=== PATIENT | female | born 1950 | race Caucasian/White ===

== ENCOUNTER 2023-06-25 14:39 | Observation (INO) ==
[2023-06-25] MEDS: ZOFRAN 4 MG/2 ML IVP STA (14:40)
[2023-06-25 14:49] LABS: BASOPHILS % (AUTO) 0.4 % (0.0-3.0); EOSINOPHILS # (AUTO) 0.2 K/ul (0.0-0.7); EOSINOPHILS % (AUTO) 1.4 % (0.0-7.0); IMMATURE GRANULOCYTE % (AUTO) 0.4 % (0.0-5.0); LYMPHOCYTES # (AUTO) 2.1 K/uL (0.60-3.4); LYMPHOCYTES % (AUTO) 19.2 (10.0-50.0); MEAN CORPUSCULAR HEMOGLOBIN 30.2 pg (27.0-31.0); MEAN CORPUSCULAR HGB CONC 32.4 (31.8-35.4); MEAN CORPUSCULAR VOLUME 93.4 fl (81.0-99.0); MONOCYTES # (AUTO) 0.8 K/uL (0.4-2.0); MONOCYTES % (AUTO) 6.9 (0-10); NEUTROPHILS # (AUTO) 7.8 K/ul (2.0-6.9); NEUTROPHILS % (AUTO) 71.7 % (42.2-75.2); PLATELET COUNT 259 10^3/uL (140-440); RDW COEFFICIENT OF VARIATION 20.6 % (11.6-14.8); RED BLOOD COUNT 3.64 10^6/ul (4.20-5.40); WHITE BLOOD COUNT 10.84 K/ul (4.6-10.2)
[2023-06-25 15:03] LABS: ALANINE AMINOTRANSFERASE 16.3 U/L (0-35); ALBUMIN 4.11 g/dL (3.5-5.0); ALKALINE PHOSPHATASE 57.9 U/L (53-141); ASPARTATE AMINO TRANSFERASE 23.8 U/L (14-36); BILIRUBIN,TOTAL 0.43 mg/dL (0.2-1.3); BLOOD UREA NITROGEN 13.3 mg/dL (7-17); CALCIUM 9.23 mg/dL (8.4-10.2); CHLORIDE 103.2 mmol/L (98-107); CREATININE 0.91 mg/dL (0.60-1.30); GLUCOSE 139.1 mg/dL (74-106); POTASSIUM 3.76 mmol/L (3.5-5.1); SODIUM 135.1 mmol/L (134.5-145); TOTAL PROTEIN 6.72 g/dL (6.3-8.2)
[2023-06-25 15:05] LABS: ANISOCYTOSIS 3+ (NOT PRESENT)
[2023-06-25 15:11] LABS: PARTIAL THROMBOPLASTIN TIME 24.8 SEC (23.9-40.0); PROTHROMBIN TIME 10.3 SEC (9.3-11.0)
[2023-06-25 15:14] LABS: TROPONIN I 0.016 ng/ml (0.0000-0.120)
[2023-06-25 15:21] LABS: MOLECULAR FLU A NEGATIVE BY NAAT (NEGATIVE); MOLECULAR FLU B NEGATIVE BY NAAT (NEGATIVE); RSV MOLECULAR NEGATIVE BY NAAT (NEGATIVE); SARS COV-2 RNA RAPID NAAT NEGATIVE (NEGATIVE)
--- NOTE | 2023-06-25 15:22 | CT ---
EXAMINATION: HEAD CT WITHOUT CONTRAST HISTORY: Altered level of consciousness TECHNIQUE: Noncontrast CT of the brain was performed with images acquired from skull base to vertex. 2-D coronal and sagittal reformatted images were obtained from the axial source images. Contrast Dose: None. CT Dose Reduction Techniques Performed: Yes. COMPARISON: None. FINDINGS: Topogram demonstrates no significant abnormality. Intraparenchymal hemorrhage: None. Parenchyma: Normal camejo-white differentiation. No mass effect or midline shift. Age related cerebral atrophy. Mild periventricular white matter ischemic change consistent with small vessel disease. M ild bilateral internal carotid artery calcifications. Extra-axial spaces and basal cisterns: Normal. Ventricles: Normal size and morphology for age. Paranasal sinuses and mastoid air cells: Mucosal thickening in the right sphenoid sinus. Remaining s inuses visualized are clear. Mastoid air cells are clear. Orbits: Normal visualized portions. Sella/Skull Base: Normal. Other: Scalp and visualized soft tissues are normal. Calvarium is normal. Mild leftward deviation na laith septum per IMPRESSION: 1. Senescent changes without acute abnormality. 2. Mild right sphenoid sinus disease. All CT scans are performed using dose optimization techniques as appropriate to the performed exam an d include at least one of the following: Automated exposure control, adjustment of the mA and/or kV according t o size, and the use of iterative reconstruction technique.
[2023-06-25] MEDS: SODIUM CHLORIDE 500 ML IV STA (15:41)
--- NOTE | 2023-06-25 16:00 | ED.PDOC ---
General ED Provider: Dr. DENNYS VALERA MD Chief Complaint: Weakness Stated Complaint: Patient presents to ER from home accompanied by her complaining of worsening weakness. Patient's reports he noticed over the past few days she seemed more weak. However was doing pretty well yesterday evening and this morning until approximately 4 AM. Says she started having such significant weakness that she was unable to walk independently. No other complaints at this time. Time Seen by Provider: 06/25/23 14:42 Mode of Arrival: Wheelchair Information Source: Family () Exam Limitations: No limitations Primary Care Provider: EUSEBIA BARRETO MD Nursing and Triage Documentation Reviewed and Agree: Yes What is Opioid Naive?: *Opioid Naive implies the patient is not already taking opioids or not chronically receiving opioids on a daily basis. *PRN dosing is not "usually" associated with tolerance. *Patients are at higher risk of over-sedation and aspiration. What is Opioid Tolerant?: *Opioid Tolerance implies less than the expected response to an opioid. *Acquired tolerance is defined by the patient taking 60mg of oral morphine daily (or equianalgesic dose of another opioid) for 1 week or more. *Often associated with chronic pain. *May take more than usual dose to achieve desired pain control. Neurological Deficit Complaint/Exam Symptom Onset Unknown: Yes Symptom Onset Date: 06/25/23 Symptom Onset Time: 04:00 NIH Scale Score (see protocol): 10 IV t-PA Prescribed: No Reasons for not prescribing IV t-PA: Medical contraindication Review of Systems Review Of Systems Constitutional: Reports Weakness All Other Systems: Reviewed and Negative (Except for those listed in the HPI.) [facility] Medical History Weakness R53.1 - Weakness (ICD-10) COVID U07.1 - COVID-19 (ICD-10) Acute hypoxemic respiratory failure due to COVID-19 U07.1 - COVID-19 (ICD-10) J96.01 - Acute respiratory failure with hypoxia (ICD-10) Family History Other Cancer Coronary artery arteriosclerosis Social History Smoking and tobacco status: Current every day smoker Tobacco type: cigarettes Passive smoking exposure: No Second hand smoke exposure: No Smoking risk assessment performed: Yes Alcohol intake: never Substance use type: does not use Household members: none Marital status: W / Lives independently: Yes Number of children: 4 Current occupational status: retired Pets and animals: Yes Current gender identity: female Seatbelt use: always Drives intoxicated or rides with intoxicated diesel truck driver: No Water heater temperature set < 120 degrees: No Working smoke detector in home: Yes Fire extinguisher in home: Yes Carbon monoxide detector in home: Yes Firearms in home: No Surgical History Hx of tonsillectomy Z90.89 - Acquired absence of other organs (ICD-10) Hx of tubal ligation Z98.51 - Tubal ligation status (ICD-10) Hx of cholecystectomy Z90.49 - Acquired absence of other specified parts of digestive tract (ICD- 10) Hx of CABG 2003 Z95.1 - Presence of aortocoronary bypass graft (ICD-10) S/P skin cancer resection excision right submandibular node 05/2020 Pt. refused Reccomended Radical Neck Dissection Z98.890 - Other specified postprocedural states (ICD-10) Female Reproductive History Menstrual Hx Hysterectomy: No Hx Tubal Ligation: Yes Physical Exam Physical Exam Appearance: Reports Ill-appearing, No pain distress and Well-nourished Ill-appearing: Severe Pain Distress: None Eyes: Reports COLT and EOMI ENT: Reports Ears normal and Nose normal Neck: Supple Respiratory: Reports Airway patent, Breath sounds clear, Breath sounds equal and Respirations nonlabored Cardiovascular: Reports RRR, Pulses normal and No murmur GI/: Reports Soft and Nontender Musculoskeletal: Reports Limited ROM and Limited strength Skin: Reports Warm, Dry and Normal color Neurological: Reports Sensation intact, Reflexes intact, Cranial nerves intact, Alert and Oriented Psychiatric: Reports Affect appropriate and Mood appropriate Interpretation EKG Interpretation EKG Interpretation By: ED Physician Time of EKG #1: 14:37 Rate: Tachy Rhythm: Sinus Ectopy: None [place]: NL ST Segment: Normal Interpretation: Sinus tach, no STEMI EKG Interpretation By: ED Physician Time of EKG #2: 17:12 Rate: Normal Rhythm: Sinus Ectopy: PACs [place]: NL ST Segment: Normal EKG Interpretation: Sinus rhythm with PACs EKG Comparison: No significant changes Critical Care Note Critical Care Note Total Critical Care Time (mins): 60 Course Course 06/25/23 14:40 06/25/23 14:40 Orders, Labs, Meds: Lab Review 06/25/23 06/25/23 06/25/23 14:40 14:51 18:00 WBC 10.84 H RBC 3.64 L Hgb 11.0 L Hct 34.0 L MCV 93.4 MCH 30.2 MCHC 32.4 RDW Coeff of Jean [place] 20.6 H Plt Count 259 Immature Gran % (Auto) 0.4 Neut % (Auto) 71.7 Lymph % (Auto) 19.2 [place] % (Auto) 6.9 Eos % (Auto) 1.4 Baso % (Auto) 0.4 Neut # (Auto) 7.8 H Lymph # (Auto) 2.1 [place] # (Auto) 0.8 Eos # (Auto) 0.2 Baso # (Auto) 0.0 Immature Gran # (Auto) 0.0 Plt Morphology Comment Anisocytosis 3+ PT 10.3 INR 0.99 APTT 24.8 Sodium 135.1 Potassium 3.76 Chloride 103.2 Carbon Dioxide 21.0 L Anion Gap 14.66 BUN 13.3 Creatinine 0.91 Estimated GFR (MDRD) 61.00 BUN/Creatinine Ratio 14.61 Glucose 139.1 H Calcium 9.23 Total Bilirubin 0.43 AST 23.8 ALT 16.3 Alkaline Phosphatase 57.9 Troponin I 0.016 Total Protein 6.72 Albumin 4.11 Globulin 2.61 Albumin/Globulin Ratio 1.57 Urine Color Yellow Urine Clarity Clear Urine pH 5.5 Ur Specific [place] <=1.005 Urine Protein Negative Urine Glucose (UA) Negative Urine Ketones Negative Urine Blood Negative Urine Nitrite Negative Urine Bilirubin Negative Urine Urobilinogen 0.2 Ur Leukocyte Esterase Negative Influ A Molecular Assay Negative by naat Influ B Molecular Assay Negative by naat RSV Antigen Negative by naat SARS CoV-2 RNA Rapid VERONICA Negative Orders Category Date Time Status ADMIT OBSERVATION [PLACE PATIENT OBSERVATION] .TO ADMISSION 06/25/23 19:36 Active MEDSURG (MONITORED BED) EKG-(ED ONLY) Stat CARDIO 06/25/23 14:42 Completed EKG-(ED ONLY) Stat CARDIO 06/25/23 17:06 Completed NPO REMINDER: IMAGING ONCE CARE 06/25/23 14:42 Completed TELEMETRY MONITORING TELE CARE 06/25/23 19:36 Active ED ACCUCHECK ASSESSMENT .ONCE EMERGENCY 06/25/23 14:42 Active ED APPLY O2 .ONCE EMERGENCY 06/25/23 14:42 Active ED INSIDE SALES ACCOUNT MANAGER APPLIED .ONCE EMERGENCY 06/25/23 14:42 Active ED IV/MEDIPORT/POWERPORT .ONCE EMERGENCY 06/25/23 14:42 Active ED NEUROLOGICAL CHECKS Q4HR EMERGENCY 06/25/23 14:42 Active CBC W/ AUTO DIFF Stat LAB 06/25/23 14:40 Completed COMPREHENSIVE METABOLIC PANEL Stat LAB 06/25/23 14:40 Completed FLU A & B MOLECULAR [FLU A/B MOLECULAR] Stat LAB 06/25/23 14:51 Completed PARTIAL THROMBOPLASTIN TIME Stat LAB 06/25/23 14:40 Completed PT WITH INR Stat LAB 06/25/23 14:40 Completed RAPID STREP SCREEN [MOLECULAR GROUP A STREP] Stat LAB 06/25/23 18:47 Completed RBC MORPHOLOGY Stat LAB 06/25/23 14:40 Completed RSV Stat LAB 06/25/23 14:51 Completed SARS COV-2 RNA RAPID VERONICA Stat LAB 06/25/23 14:51 Completed TROPONIN I Stat LAB 06/25/23 14:40 Completed URINALYSIS C & S IF INDICATED Stat LAB 06/25/23 18:00 Completed 0.9 % Sodium Chloride [Saline Flush] Meds 06/25/23 14:42 Active 1 syr IVF PRN PRN Ondansetron HCl/Pf [Zofran 4 mg/2 ml] Meds 06/25/23 14:44 Discontinued 4 mg IVP ONCE STA Sodium Chloride 0.9% [Sodium Chloride] 500 ml Meds 06/25/23 14:46 Discontinued IV 100 mls/hr CT HEAD W/O CONTRAST Stat RADS 06/25/23 14:42 Completed CTA ANGIO HEAD Stat RADS 06/25/23 14:42 Completed CTA ANGIO NECK Stat RADS 06/25/23 14:42 Completed Medications Generic Name Dose Route Start Last Admin Trade Name Freq PRN Reason Stop Dose Admin Acetaminophen 650 mg 06/25/23 20:52 Acetaminophen 325 Mg Tablet PO Q4H PRN Mild Pain Alprazolam 0.25 mg 06/25/23 21:00 06/25/23 21:20 Alprazolam 0.25 Mg Tablet PO 0.25 mg BID JAMAL Administration Aspirin 81 mg 06/26/23 07:30 Aspirin 81 Mg Tablet. PO DAILYWM2 JAMAL Clopidogrel Bisulfate 75 mg 06/26/23 09:00 Clopidogrel Bisulfate 75 Mg Tablet PO DAILY JAMAL Ferrous Sulfate 324 mg 06/25/23 21:30 06/25/23 21:20 Ferrous Sulfate 324 Mg Tablet. PO 324 mg BID JAMAL Administration Hydralazine HCl 10 mg 06/25/23 21:03 Hydralazine Hcl 20 Mg/Ml Sdv IVP Q6H PRN Hypertension Levothyroxine Sodium 50 mcg 06/26/23 06:00 Levothyroxine Sodium 50 Mcg Tablet PO QDAC2 JAMAL Pravastatin Sodium 80 mg 06/26/23 09:00 Pravastatin Sodium 40 Mg Tablet PO DAILY JAMAL Ranolazine 500 mg 06/25/23 21:00 06/25/23 21:20 Ranolazine 500 Mg Tab.Er.12h PO 500 mg BID JAMAL Administration Sodium Chloride 1 syr 06/25/23 14:42 0.9% Sodium Chloride 10 Ml Disp.Syrin IVF PRN PRN To flush IV Discontinued Medications Generic Name Dose Route Start Last Admin Trade Name Freq PRN Reason Stop Dose Admin Aspirin 243 mg 06/25/23 20:55 06/25/23 21:20 Aspirin 81 Mg Tab.Chew PO 06/25/23 20:56 243 mg ONCE ONE Administration Sodium Chloride 500 mls @ 100 mls/hr 06/25/23 14:46 06/25/23 15:41 Sodium Chloride IV 06/25/23 19:45 100 mls/hr .Q5H STA Administration Ondansetron HCl 4 mg 06/25/23 14:44 06/25/23 14:40 Ondansetron Hcl/Pf 4 Mg/2 Ml Sdv IVP 06/25/23 14:45 4 mg ONCE STA Administration Vital Signs: Temp Pulse Resp BP Pulse Ox O2 Flow Rate 06/25/23 14:44 2 06/25/23 14:44 97.5 F L 130 H 16 128/79 94 L [place] [id number] Diagnostic Imaging CT Report : [id number] Signed Patient: AYDE FARIA Acct:[id number] Medical Record: [id number] : 1950 Loc: ED Room/Bed: Age/Sex: 72 / F ADM Status: REG ER Date of Service: 06/25/23 Ordering Physician: DENNYS VALERA MD Procedure(s): CT HEAD W/O CONTRAST Report Number(s): [id number] Accession Number(s): [id number] cc: EUSEBIA BARRETO MD; DENNYS VALERA MD EXAMINATION: HEAD CT WITHOUT CONTRAST HISTORY: Altered level of consciousness TECHNIQUE: Noncontrast CT of the brain was performed with images acquired from skull base to vertex. 2-D coronal and sagittal reformatted images were obtained from the axial source images. Contrast Dose: None. CT Dose Reduction Techniques Performed: Yes. COMPARISON: None. FINDINGS: Topogram demonstrates no significant abnormality. Intraparenchymal hemorrhage: None. Parenchyma: Normal veloz-white differentiation. No mass effect or midline shift. Age related cerebral atrophy. Mild periventricular white matter ischemic change consistent with small vessel disease. Mild bilateral internal carotid artery calcifications. Extra-axial spaces and basal cisterns: Normal. Ventricles: Normal size and morphology for age. Paranasal sinuses and mastoid air cells: Mucosal thickening in the right sphenoid sinus. Remaining sinuses visualized are clear. Mastoid air cells are clear. Orbits: Normal visualized portions. Sella/Skull Base: Normal. Other: Scalp and visualized soft tissues are normal. Calvarium is normal. Mild leftward deviation nasal septum per IMPRESSION: 1. Senescent changes without acute abnormality. 2. Mild right sphenoid sinus disease. All CT scans are performed using dose optimization techniques as appropriate to the performed exam and include at least one of the following: Automated exposure control, adjustment of the mA and/or kV according to size, and the use of iterative reconstruction technique. Dictated By: HUSSAIN CARPENTER MD Signed By: HUSSAIN CARPENTER MD Dictated Date/Time: 06/25/23 1509 Transcribed Date/Time: 06/25/23 1509 Signed Date/Time: 06/25/23 [address] [place] [address] Report : [id number] Signed Patient: AYDE FARIA Acct:[id number] Medical Record: [id number] : 1950 Loc: ED Room/Bed: Age/Sex: 72 / F ADM Status: REG ER Date of Service: 06/25/23 Ordering Physician: DENNYS VALERA MD Procedure(s): CTA ANGIO HEAD Report Number(s): [id number] Accession Number(s): [id number] cc: EUSEBIA BARRETO MD; DENNYS VALERA MD EXAMINATION: COMPUTED TOMOGRAPHY ANGIOGRAPHY (CTA) OF THE HEAD WITHOUT AND WITH CONTRAST HISTORY: Altered level of consciousness. TECHNIQUE: Computed tomography of the head was performed without contrast according to standard protocol. Computed tomography angiography was obtained from the skull base to the vertex following administration of intravenous contrast. IV Contrast: 100 mL of Visipaque 320 administered. 3D/MIP/VR images utilized. CT Dose Reduction Techniques Employed: Yes COMPARISON: CT of the head done earlier in the day. FINDINGS: PARENCHYMAL FINDINGS: No intracranial bleed, midline shift, mass effect, extra-axial fluid collection or hydrocephalous. Age related cerebral atrophy. Mild periventricular white matter ischemic change consistent small vessel disease. Veloz/white matter differentiation appears normal. No enhancing lesions or areas of abnormal enhancement. Bony structures normal for age. Mild right sphenoid sinus disease. The remaining sinuses and mastoids visualized are clear. ANGIOGRAPHIC FINDINGS: Limited Neck: Patent extracranial vasculature. [place]: Complete. Mild atherosclerotic calcific changes in the carotid siphon regions bilaterally without significant stenosis. Anterior Circulation: - Internal Carotid Arteries: No significant stenosis. - Middle Cerebral Arteries: No significant stenosis. - Anterior Cerebral Arteries: No significant stenosis. Posterior (Vertebrobasilar) Circulation: - Vertebral Arteries: Co-dominant. No significant stenosis. - Basilar Artery: No significant stenosis. - Posterior Cerebral Arteries: No significant stenosis. Other: No aneurysm. No vascular malformation. Intracranial venous system is within normal limits. IMPRESSION: 1. Noncontrast CT of the head shows no acute abnormality. Contrast enhanced parenchyma is unremarkable 2. Unremarkable CTA of the head. 3. Mild right sphenoid sinus disease. All CT scans are performed using dose optimization techniques as appropriate to the performed exam and include at least one of the following: Automated exposure control, adjustment of the mA and/or kV according to size, and the use of iterative reconstruction technique. Dictated By: HUSSAIN CARPENTER MD Signed By: HUSSAIN CARPENTER MD Dictated Date/Time: 06/25/23 1546 Transcribed Date/Time: 06/25/23 1546 Signed Date/Time: 06/25/[address] Report : [id number] Signed Patient: AYDE FARIA Acct:[id number] Medical Record: [id number] : 1950 Loc: ED Room/Bed: Age/Sex: 72 / F ADM Status: REG ER Date of Service: 06/25/23 Ordering Physician: DENNYS VALERA MD Procedure(s): CTA ANGIO NECK Report Number(s): [id number] Accession Number(s): [id number] cc: EUSEBIA BARRETO MD; DENNYS VALERA MD EXAM: NECK CTA WITHOUT AND WITH CONTRAST HISTORY: Stroke TECHNIQUE: CTA of the neck prior to and following IV contrast administration. CT dose reduction techniques performed: Yes. Coronal and sagittal reconstructions were performed. MIP/VR/3-D images were provided. All reported proximal ICA stenoses are calculated based upon the distal ICA diameter (NASCET criteria). COMPARISON: CT head 06/25/2023 FINDINGS: Aortic arch, brachiocephalic artery, and common carotid arteries are patent. Internal carotid arteries are patent. Vertebral arteries are patent. No aneurysm, dissection, or high grade stenosis/occlusion. . IMPRESSION: No aneurysm, dissection, or high-grade stenosis/occlusion. All CT scans are performed using dose optimization techniques as appropriate to the performed exam and include at least one of the following: Automated exposure control, adjustment of the mA and/or kV according to size, and the use of iterative reconstruction technique. Dictated By: CLAYTON JAEGER DO Signed By: CLAYTON JAEGER DO Dictated Date/Time: 06/25/23 1556 Transcribed Date/Time: 06/25/23 155 Signed Date/Time: 06/25/23 1606 NIH Stroke Scale 1a. Level of Consciousness: 0=Alert and keenly responsive 1b. Level of Consciousness Questions: 0=Answers correctly to two questions 1c. Level of Consciousness Commands: 0=Performs two tasks correctly 2. Best Gaze: 0=Normal 3. Visual: 0=No visual loss 4. Facial Palsy: 0=Normal 5a. Motor Left Arm: 3=No effort against gravity, falls to bed 5b. Motor Right Arm: 3=No effort against gravity, falls to bed 6a. Motor Left Le=No effort against gravity, falls to bed 6b. Motor Right Le=Drifts before 10 seconds arm, 5 seconds leg 7. Limb Ataxia: 0=Absent 8. Sensory: 0=Normal 9. Best Language: 0=No aphasia 10. Dysarthria: 0=Normal 11. Extincion and Inattention: 0=Normal Stroke Scale Total: 10 Stroke Checklist for Activase Younger than 18 years of age: No Minor signs of stroke: Yes Stroke signs are rapidly improving: No Coma or stupor: No Seizure at the onset of stroke: No Clinic presentation suggestive of subarachnoid hemorrhage: No Intracranial hemorrhage on CT scan: No Puncture of a non-compressible artery or biopsy of any internal organ within the past 7 days: No Pericarditis, endocarditis, septic emboli, recent , or active inflammatory bowel disease: No Lactating or woman: No Stroke or severe head trauma within the previous 3 months: No Major surgery or serious trauma (besides head trauma) in the previous 14 days: N o Gastroenterology or urinary tract hemorrhage in the previous 21 days: No Lumbar puncture in the previous 7 days: No Any history of intracranial hemorrhage: No Patients with a serious medical illness: No Active drug or alcohol abuse: No Acute myocardial infarction or post-myocardial infarction pericarditis: No Evidence of tumor, major infarct, or early signs of cerebral edema on CT scan: N o Platelet count lower than 100,000: No PT higher than 15 sec or INR higher than 1.7: No Systolic BP greater than 185 and/or diastolic BP greater than 110 mm Hg at the time of treatment: No Glucose lower than 50 mg/dl or greater than 400 mg/dl: No Stroke Core Antithrombotic Contraindication reason for not ordering Anitithrombotic: Not Indicated (LKW=04:00 today) Discharge Plan Discharge Patient Disposition: ADMITTED INPATIENT Discharge Problem: Weakness, Stroke-like symptoms Did you review [place] DEALER ACCOUNT MANAGER for ALL controlled substances?: Not Applicable ED Provider: DENNYS VALERA Condition: Good Physician Progress Note: 17:31 - Reassessed patient's motor weakness. Patient exhibits no drift of both upper and lower extremities. Symptoms appear to have resolved at this time. 18:22 - Spoke with on-call hospitalist (KHARI Alegria) regarding patient's status and current workup and management for weakness likely secondary to stroke-like symptoms. High clinical suspicion patient may have had a TIA. Her weakness has resolved at this time. Patient denies having any pacemaker or loop recorder or any other device that may be incompatible with an MRI. Hospitalist agreeable to accepting patient for observation admission for further workup.
--- NOTE | 2023-06-25 16:06 | CT ---
EXAM: NECK CTA WITHOUT AND WITH CONTRAST HISTORY: Stroke TECHNIQUE: CTA of the neck prior to and following IV contrast administration. CT dose reduction tech niques performed: Yes. Coronal and sagittal reconstructions were performed. MIP/VR/3-D images were provided. All reported proximal ICA stenoses are calculated based upon the distal ICA diameter (NASC ET criteria). COMPARISON: CT head 06/25/2023 FINDINGS: Aortic arch, brachiocephalic artery, and common carotid arteries are patent. Internal carotid arteri es are patent. Vertebral arteries are patent. No aneurysm, dissection, or high grade stenosis/occlusi on. . IMPRESSION: No aneurysm, dissection, or high-grade stenosis/occlusion. All CT scans are performed using dose optimization techniques as appropriate to the performed exam an d include at least one of the following: Automated exposure control, adjustment of the mA and/or kV according t o size, and the use of iterative reconstruction technique.
--- NOTE | 2023-06-25 16:08 | CT ---
EXAMINATION: COMPUTED TOMOGRAPHY ANGIOGRAPHY (CTA) OF THE HEAD WITHOUT AND WITH CONTRAST HISTORY: Altered level of consciousness. TECHNIQUE: Computed tomography of the head was performed without contrast according to standard gabino col. Computed tomography angiography was obtained from the skull base to the vertex following admini stration of intravenous contrast. IV Contrast: 100 mL of Visipaque 320 administered. 3D/MIP/VR images utilized. CT Dose Reduction Techniques Employed: Yes COMPARISON: CT of the head done earlier in the day. FINDINGS: PARENCHYMAL FINDINGS: No intracranial bleed, midline shift, mass effect, extra-axial fluid collection or hydrocephalous. A ge related cerebral atrophy. Mild periventricular white matter ischemic change consistent small vess el disease. Veloz/white matter differentiation appears normal. No enhancing lesions or areas of abno rmal enhancement. Bony structures normal for age. Mild right sphenoid sinus disease. The remaining sinuses and mastoids visualized are clear. ANGIOGRAPHIC FINDINGS: Limited Neck: Patent extracranial vasculature. [place]: Complete. Mild atherosclerotic calcific changes in the carotid siphon regions bila terally without significant stenosis. Anterior Circulation: - Internal Carotid Arteries: No significant stenosis. - Middle Cerebral Arteries: No significant stenosis. - Anterior Cerebral Arteries: No significant stenosis. Posterior (Vertebrobasilar) Circulation: - Vertebral Arteries: Co-dominant. No significant stenosis. - Basilar Artery: No significant stenosis. - Posterior Cerebral Arteries: No significant stenosis. Other: No aneurysm. No vascular malformation. Intracranial venous system is within normal limits. IMPRESSION: 1. Noncontrast CT of the head shows no acute abnormality. Contrast enhanced parenchyma is unremarkab le 2. Unremarkable CTA of the head. 3. Mild right sphenoid sinus disease. All CT scans are performed using dose optimization techniques as appropriate to the performed exam an d include at least one of the following: Automated exposure control, adjustment of the mA and/or kV according t o size, and the use of iterative reconstruction technique.
[2023-06-25 18:05] LABS: BILIRUBIN,URINE Negative (NEGATIVE); CLARITY,URINE Clear (CLEAR); COLOR,URINE Yellow (YELLOW); GLUCOSE, URINE (UA) Negative (NEGATIVE); KETONES,URINE Negative (NEGATIVE); LEUKOCYTE ESTERASE ,URINE Negative (NEGATIVE); NITRITE,URINE Negative (NEGATIVE); PH,URINE 5.5 (5-9); PROTEIN,URINE Negative (NEGATIVE); URINE, BLOOD Negative (NEGATIVE); UROBILINOGEN,URINE 0.2 (0.2)
[2023-06-25 20:42] VITALS: BMI 25.0
[2023-06-25] MEDS ORDERED: TYLENOL PO PRN (20:52)
[2023-06-25] MEDS ORDERED: NON-FORMULARY MEDICATION (Ferrous Sulfate 325 mg (65 mg iron) tablet) PO SCH (21:00)
[2023-06-25] MEDS ORDERED: HYDRALAZINE HCL IVP PRN (21:03)
[2023-06-25] MEDS: ASPIRIN CHEWABLE PO ONE (21:20)
[2023-06-25] MEDS: FERROUS SULFATE PO SCH (21:20)
[2023-06-25] MEDS: RANEXA PO SCH (21:20)
[2023-06-25] MEDS: XANAX PO SCH (21:20)
[2023-06-26] MEDS: SYNTHROID PO SCH (05:19)
[2023-06-26 06:02] LABS: BASOPHILS % (AUTO) 0.3 % (0.0-3.0); EOSINOPHILS # (AUTO) 0.2 K/ul (0.0-0.7); EOSINOPHILS % (AUTO) 3.2 % (0.0-7.0); HEMATOCRIT 31.4 % (37.0-47.0); HEMOGLOBIN 9.9 g/dl (12.0-16.0); IMMATURE GRANULOCYTE % (AUTO) 0.3 % (0.0-5.0); LYMPHOCYTES # (AUTO) 1.3 K/uL (0.60-3.4); LYMPHOCYTES % (AUTO) 20.7 (10.0-50.0); MEAN CORPUSCULAR HEMOGLOBIN 30.6 pg (27.0-31.0); MEAN CORPUSCULAR HGB CONC 31.5 (31.8-35.4); MEAN CORPUSCULAR VOLUME 96.9 fl (81.0-99.0); MONOCYTES # (AUTO) 0.5 K/uL (0.4-2.0); MONOCYTES % (AUTO) 7.5 (0-10); NEUTROPHILS # (AUTO) 4.3 K/ul (2.0-6.9); PLATELET COUNT 228 10^3/uL (140-440); RDW COEFFICIENT OF VARIATION 20.7 % (11.6-14.8); RED BLOOD COUNT 3.24 10^6/ul (4.20-5.40); WHITE BLOOD COUNT 6.29 K/ul (4.6-10.2)
[2023-06-26 06:18] LABS: ALANINE AMINOTRANSFERASE 13.3 U/L (0-35); ALBUMIN 3.64 g/dL (3.5-5.0); ALKALINE PHOSPHATASE 51.7 U/L (53-141); ASPARTATE AMINO TRANSFERASE 17.7 U/L (14-36); BILIRUBIN,TOTAL 0.38 mg/dL (0.2-1.3); BLOOD UREA NITROGEN 15.3 mg/dL (7-17); CALCIUM 8.57 mg/dL (8.4-10.2); CARBON DIOXIDE 21.4 mmol/L (22-30.0); CHLORIDE 106.7 mmol/L (98-107); CHOLESTEROL 131.6 mg/dL (0-200); CREATININE 0.91 mg/dL (0.60-1.30); GLUCOSE 117.3 mg/dL (74-106); HDL CHOLESTEROL 38.8 mg/dL (35-80); POTASSIUM 3.94 mmol/L (3.5-5.1); TOTAL PROTEIN 6.02 g/dL (6.3-8.2); TRIGLYCERIDES 85.6 mg/dL (0-150)
[2023-06-26] MEDS: PLAVIX PO SCH (08:52)
[2023-06-26] MEDS: ASPIRIN EC PO SCH (08:52)
[2023-06-26] MEDS: PRAVACHOL PO SCH (08:52)
[2023-06-26 10:29] VITALS: BP 104/51; TEMP 99.2
--- NOTE | 2023-06-26 11:48 | ECHO2D ---
Date of Exam: 06/26/2023 Ordering Physician: DR. BARRETO (PRIMARY CARE); BUCK CONTRERAS APRN (HOSPITALIST) Room #: 115 Reason for Echo: CEREBRAL VASCULAR ACCIDENT SYMPTOMS, HISTORY OF CORONARY ARTERY BYPASS GRAFTS, CHRONIC OBSTRUCTIVE PULMONARY DISEASE, HYPERLIPIDEMIA, DIABETES MELLITUS, HYPERTENSION, CORONARY ARTERY DISEASE, CURRENT SMOKER M-Mode Normal Adult Results LV Dimensions Normal Adult Results AoV Opening excursions >1.6 >1.6 LVEDD-base- 3.5-5.8 4.6 Ao root dimensions 2.0-3.7 3.7 LVESD-base- 3.1-4.6 L. Atrium dimensions 1.9-3.8 4.0 Post. Wall thickness 0.8-1.1 1.1 IV septum (thickness) 0.7-1.2 1.2 Post. Wall excursion 0.72-1.3 NORMAL Septal motion NORMAL Systolic motion R. Ventricular cavity 1.5-2.0 3.5 LVEF 60% 58% Paradoxical septal wall motion NORMAL 2-D : 2-D M Mode Echocardiogram was performed using apical four chamber and left parasternal long and short axis views. Also subcostal approach used - COPD. ENLARGED LEFT ATRIUM AND RIGHT VENTRICLE CAVITIES. NORMAL LEFT VENTRICLE SIZE AND LEFT VENTRICULAR CONTRACTILITY. NO EFFUSION. NO THROMBUS. VALVES ARE NORMAL. COLOR FLOW: MODERATE TO SEVERE TRICUSPID REGURGITATION ALSO SUBCOSTAL APPROACH - COPD M-MODE: MV: NORMAL AV: NORMAL TV: NORMAL PV: NORMAL CHAMBER SIZE: ENLARGED RIGHT VENTRICLE AND LEFT ATRIUM CAVITIES. WALL MOTION: NORMAL PERICARDIUM: NORMAL INTERPRETATION: 1. BORDERLINE LEFT VENTRICLE HYPERTROPHY WITH ENLARGED LEFT ATRIAL CAVITY. 2. ENLARGED RIGHT VENTRICLE CAVITY. 3. NORMAL VALVES BY 2 'D' AND 'M' MODE ECHOCARDIOGRAM. 4. COLOR FLOW = MODERATE TO SEVERE TRICUSPID REGURGITATION. MTDD
--- NOTE | 2023-06-26 14:18 | PCM.SS ---
Provider Provider: BUCK CONTRERAS PA-C, [facility] Admission Date Admission Date: 06/25/23 Discharge Date Discharge Date: 06/26/23 Primary Care Physician Primary Care Physician: EUSEBIA CONTRERAS MD Chief Complaint Reason For Visit: WEAKNESS, STROKE LIKE SYMPTOMS History of Present Illness History of Present Illness: Admitted 06/25/23 19:41, this 72 year old /WHITE/F with pmhx of COPD, melanoma, hyperlipidemia, CAD s/p stent and CABG, PAD, hypertension, who presented to ER with left sided weakness that started about 1200 on 06/24. Patient states she was trying to get her outside for a phone call when she couldn't hardly walk to the building she was so weak. She thought her sugar was low. Her helped her into the home and she ate a peanut butter sandwich and felt better for a brief period of time but then she started having severe left sided weakness. No slurring of speech. No facial droop. In the ER she was found to have NIH of 10. CT head w/o and CTA head and neck were negative for acute findings. When ERP reevaluated patient her symptoms had competely resolved, she was back to her baseline. No hx of CVA or TIA in the past. Patient is on ASA and plavix for hx of CAD w/ stents/CABG. Pt is a chronic smoker. Patient did well through the night. No more events. Has remained at her baseline. She has been mildly hypoxic in upper 80s. Patient has been noncompliant with wearing a nasal cannula. [facility] Medical History Weakness R53.1 - Weakness (ICD-10) COVID U07.1 - COVID-19 (ICD-10) Acute hypoxemic respiratory failure due to COVID-19 U07.1 - COVID-19 (ICD-10) J96.01 - Acute respiratory failure with hypoxia (ICD-10) Surgical History Hx of tonsillectomy Z90.89 - Acquired absence of other organs (ICD-10) Hx of tubal ligation Z98.51 - Tubal ligation status (ICD-10) Hx of cholecystectomy Z90.49 - Acquired absence of other specified parts of digestive tract (ICD- 10) Hx of CABG 2003 Z95.1 - Presence of aortocoronary bypass graft (ICD-10) S/P skin cancer resection excision right submandibular node 05/2020 Pt. refused Reccomended Radical Neck Dissection Z98.890 - Other specified postprocedural states (ICD-10) Family History Other Cancer Coronary artery arteriosclerosis Social History Smoking and tobacco status: Current every day smoker Tobacco type: cigarettes Passive smoking exposure: No Second hand smoke exposure: No Smoking risk assessment performed: Yes Alcohol intake: never Substance use type: does not use Household members: none Marital status: W / Lives independently: Yes Number of children: 4 Current occupational status: retired Pets and animals: Yes Current gender identity: female Seatbelt use: always Drives intoxicated or rides with intoxicated van driver: No Water heater temperature set < 120 degrees: No Working smoke detector in home: Yes Fire extinguisher in home: Yes Carbon monoxide detector in home: Yes Firearms in home: No Medications Mecications: Medications at Discharge (Home Meds & RX) aspirin 81 mg tablet,delayed release (Adult Low Dose Aspirin) 81 mg PO QDAY 04/24/22 cholecalciferol (vitamin D3) 25 mcg (1,000 unit) capsule 25 mcg PO QDAY 04/24/22 cyanocobalamin (vitamin B-12) 100 mcg tablet (Vitamin B-12) 100 mcg PO QDAY 04/24/22 omega 6-xfl-ioa-fish oil 300 mg-1,000 mg capsule (Fish Oil) 1 cap PO QDAY 04/24/22 ranolazine 500 mg tablet,extended release,12 hr 500 mg PO BID #180 tabs 02/10/23 atenolol 25 mg tablet 25 mg PO BID #180 tabs 03/03/23 clopidogrel 75 mg tablet 75 mg PO DAILY #90 tabs 03/24/23 alprazolam 0.25 mg tablet (Xanax) 0.25 mg PO BID #60 tabs 04/21/23 isosorbide mononitrate 30 mg tablet,extended release 24 hr 30 mg PO DAILY #90 tabs 05/11/23 levothyroxine 50 mcg tablet (Euthyrox) 50 mcg PO DAILY #90 tabs 05/11/23 lisinopril 40 mg tablet See Rx Instructions .Route .COMPLEX #90 tabs 05/21/23 ferrous sulfate 325 mg (65 mg iron) tablet 325 mg PO BID #60 tabs 06/04/23 pravastatin 80 mg tablet 80 mg PO DAILY #90 tabs 06/08/23 amlodipine 5 mg tablet See Rx Instructions .Route .COMPLEX #90 tabs 06/23/23 Allergies Allergies Allergy/AdvReac Type Severity Reaction Status Date / Time atorvastatin [From Lipitor] AdvReac Mild muscle Verified 06/25/23 15:03 aches escitalopram [From Lexapro] AdvReac Mild Unknown Verified 06/25/23 15:03 rosuvastatin [From Crestor] AdvReac Mild leg pain Verified 06/25/23 15:03 tylox AdvReac Mild Unknown Uncoded 06/25/23 15:03 Review of Systems Constitutional: Reports Weakness; Denies Fever Head: Reports Normocephalic and Atraumatic Cardiovascular: Denies Chest pain, Chest Pressure or Edema Respiratory: Reports Cough and Shortness of air Genitourinary: Denies Dysuria or Frequency Dermatologic: Denies Rashes Neurological: Reports Weakness and Problems with walking; Denies Headache Physical Examination Appearance: Positive No Apparent Distress and Alert and Oriented x3 Head: Positive Normocephalic and Atraumatic Neck: Positive Supple and Non-Tender Heart: Positive RRR Respiratory: Positive Breath Sounds Clear, Bilaterally, Breath Sounds Diminished and Other (+Pt has some mild conversational dyspnea. ) GI/: Positive Soft, Nontender, Bowel sounds normal and No Distention Extremities: Negative Edema Neurological: Positive Cranial nerves intact, Sensation Intact, Motor Intact, Alert and Oriented Psychiatric: Positive Normal Judgement, Normal Insight, Affect Appropriate and Mood Appropriate Vital Signs (Last 4 Hours) Vital Signs Last 4 Hours: Vital Signs: Last 4 Hours 06/26/23 12:00 Oxygen Delivery Method Room Air Labs This Visit Labs This Visit: Labs This Visit 06/25/23 06/25/23 06/25/23 14:40 14:51 18:00 WBC 10.84 H RBC 3.64 L Hgb 11.0 L Hct 34.0 L MCV 93.4 MCH 30.2 MCHC 32.4 RDW Coeff of [place] 20.6 H Plt Count 259 Immature Gran % (Auto) 0.4 Neut % (Auto) 71.7 Lymph % (Auto) 19.2 [place] % (Auto) 6.9 Eos % (Auto) 1.4 Baso % (Auto) 0.4 Neut # (Auto) 7.8 H Lymph # (Auto) 2.1 [place] # (Auto) 0.8 Eos # (Auto) 0.2 Baso # (Auto) 0.0 Immature Gran # (Auto) 0.0 Plt Morphology Comment Anisocytosis 3+ PT 10.3 INR 0.99 APTT 24.8 Sodium 135.1 Potassium 3.76 Chloride 103.2 Carbon Dioxide 21.0 L Anion Gap 14.66 BUN 13.3 Creatinine 0.91 Estimated GFR (MDRD) 61.00 BUN/Creatinine Ratio 14.61 Glucose 139.1 H Hemoglobin A1c Calcium 9.23 Total Bilirubin 0.43 AST 23.8 ALT 16.3 Alkaline Phosphatase 57.9 Troponin I 0.016 Total Protein 6.72 Albumin 4.11 Globulin 2.61 Albumin/Globulin Ratio 1.57 Triglycerides Cholesterol LDL Cholesterol, Calc VLDL Cholesterol HDL Cholesterol Cholesterol/HDL Ratio Urine Color Yellow Urine Clarity Clear Urine pH 5.5 Ur Specific [place] <=1.005 Urine Protein Negative Urine Glucose (UA) Negative Urine Ketones Negative Urine Blood Negative Urine Nitrite Negative Urine Bilirubin Negative Urine Urobilinogen 0.2 Ur Leukocyte Esterase Negative Influ A Molecular Assay Negative by naat Influ B Molecular Assay Negative by naat RSV Antigen Negative by naat SARS CoV-2 RNA Rapid VERONICA Negative 06/26/23 05:40 WBC 6.29 RBC 3.24 L Hgb 9.9 L Hct 31.4 L MCV 96.9 MCH 30.6 MCHC 31.5 L RDW Coeff of [place] 20.7 H Plt Count 228 Immature Gran % (Auto) 0.3 Neut % (Auto) 68.0 Lymph % (Auto) 20.7 [place] % (Auto) 7.5 Eos % (Auto) 3.2 Baso % (Auto) 0.3 Neut # (Auto) 4.3 Lymph # (Auto) 1.3 [place] # (Auto) 0.5 Eos # (Auto) 0.2 Baso # (Auto) 0.0 Immature Gran # (Auto) 0.0 Plt Morphology Comment Anisocytosis PT INR APTT Sodium 137.0 Potassium 3.94 Chloride 106.7 Carbon Dioxide 21.4 L Anion Gap 12.84 BUN 15.3 Creatinine 0.91 Estimated GFR (MDRD) 61.00 BUN/Creatinine Ratio 16.81 Glucose 117.3 H Hemoglobin A1c 5.17 Calcium 8.57 Total Bilirubin 0.38 AST 17.7 ALT 13.3 Alkaline Phosphatase 51.7 L Troponin I Total Protein 6.02 L Albumin 3.64 Globulin 2.38 Albumin/Globulin Ratio 1.52 Triglycerides 85.6 Cholesterol 131.6 LDL Cholesterol, Calc 76 VLDL Cholesterol 17 HDL Cholesterol 38.8 Cholesterol/HDL Ratio 3.4 L Urine Color Urine Clarity Urine pH Ur Specific [place] Urine Protein Urine Glucose (UA) Urine Ketones Urine Blood Urine Nitrite Urine Bilirubin Urine Urobilinogen Ur Leukocyte Esterase Influ A Molecular Assay Influ B Molecular Assay RSV Antigen SARS CoV-2 RNA Rapid VERONICA Microbiology This Visit 06/25/23 18:47 Throat Group A Strep Molecular Assay - Final Imaging Imaging: EXAMINATION: HEAD CT WITHOUT CONTRAST HISTORY: Altered level of consciousness TECHNIQUE: Noncontrast CT of the brain was performed with images acquired from skull base to vertex. 2-D coronal and sagittal reformatted images were obtained from the axial source images. Contrast Dose: None. CT Dose Reduction Techniques Performed: Yes. COMPARISON: None. FINDINGS: Topogram demonstrates no significant abnormality. Intraparenchymal hemorrhage: None. Parenchyma: Normal veloz-white differentiation. No mass effect or midline shift. Age related cerebral atrophy. Mild periventricular white matter ischemic change consistent with small vessel disease. Mild bilateral internal carotid artery calcifications. Extra-axial spaces and basal cisterns: Normal. Ventricles: Normal size and morphology for age. Paranasal sinuses and mastoid air cells: Mucosal thickening in the right sphenoid sinus. Remaining sinuses visualized are clear. Mastoid air cells are clear. Orbits: Normal visualized portions. Sella/Skull Base: Normal. Other: Scalp and visualized soft tissues are normal. Calvarium is normal. Mild leftward deviation nasal septum per IMPRESSION: 1. Senescent changes without acute abnormality. 2. Mild right sphenoid sinus disease. EXAMINATION: COMPUTED TOMOGRAPHY ANGIOGRAPHY (CTA) OF THE HEAD WITHOUT AND WITH CONTRAST HISTORY: Altered level of consciousness. TECHNIQUE: Computed tomography of the head was performed without contrast according to standard protocol. Computed tomography angiography was obtained from the skull base to the vertex following administration of intravenous contrast. IV Contrast: 100 mL of Visipaque 320 administered. 3D/MIP/VR images utilized. CT Dose Reduction Techniques Employed: Yes COMPARISON: CT of the head done earlier in the day. FINDINGS: PARENCHYMAL FINDINGS: No intracranial bleed, midline shift, mass effect, extra-axial fluid collection or hydrocephalous. Age related cerebral atrophy. Mild periventricular white matter ischemic change consistent small vessel disease. Veloz/white matter differentiation appears normal. No enhancing lesions or areas of abnormal enhancement. Bony structures normal for age. Mild right sphenoid sinus disease. The remaining sinuses and mastoids visualized are clear. ANGIOGRAPHIC FINDINGS: Limited Neck: Patent extracranial vasculature. [place]: Complete. Mild atherosclerotic calcific changes in the carotid siphon regions bilaterally without significant stenosis. Anterior Circulation: - Internal Carotid Arteries: No significant stenosis. - Middle Cerebral Arteries: No significant stenosis. - Anterior Cerebral Arteries: No significant stenosis. Posterior (Vertebrobasilar) Circulation: - Vertebral Arteries: Co-dominant. No significant stenosis. - Basilar Artery: No significant stenosis. - Posterior Cerebral Arteries: No significant stenosis. Other: No aneurysm. No vascular malformation. Intracranial venous system is within normal limits. IMPRESSION: 1. Noncontrast CT of the head shows no acute abnormality. Contrast enhanced parenchyma is unremarkable 2. Unremarkable CTA of the head. 3. Mild right sphenoid sinus disease. EXAM: NECK CTA WITHOUT AND WITH CONTRAST HISTORY: Stroke TECHNIQUE: CTA of the neck prior to and following IV contrast administration. CT dose reduction techniques performed: Yes. Coronal and sagittal reconstructions were performed. MIP/VR/3-D images were provided. All reported proximal ICA stenoses are calculated based upon the distal ICA diameter (NASCET criteria). COMPARISON: CT head 06/25/2023 FINDINGS: Aortic arch, brachiocephalic artery, and common carotid arteries are patent. Internal carotid arteries are patent. Vertebral arteries are patent. No aneurysm, dissection, or high grade stenosis/occlusion. . IMPRESSION: No aneurysm, dissection, or high-grade stenosis/occlusion. Reason for Echo: CEREBRAL VASCULAR ACCIDENT SYMPTOMS, HISTORY OF CORONARY ARTERY BYPASS GRAFTS, CHRONIC OBSTRUCTIVE PULMONARY DISEASE, HYPERLIPIDEMIA, DIABETES MELLITUS, HYPERTENSION, CORONARY ARTERY DISEASE, CURRENT SMOKER M-Mode Normal Adult Results LV Dimensions Normal Adult Results AoV Opening excursions >1.6 >1.6 LVEDD-base- 3.5-5.8 4.6 Ao root dimensions 2.0-3.7 3.7 LVESD-base- 3.1-4.6 L. Atrium dimensions 1.9-3.8 4.0 Post. Wall thickness 0.8-1.1 1.1 IV septum (thickness) 0.7-1.2 1.2 Post. Wall excursion 0.72-1.3 NORMAL Septal motion NORMAL Systolic motion R. Ventricular cavity 1.5-2.0 3.5 LVEF 60% 58% Paradoxical septal wall motion NORMAL 2-D : 2-D M Mode Echocardiogram was performed using apical four chamber and left parasternal long and short axis views. Also subcostal approach used - COPD. ENLARGED LEFT ATRIUM AND RIGHT VENTRICLE CAVITIES. NORMAL LEFT VENTRICLE SIZE AND LEFT VENTRICULAR CONTRACTILITY. NO EFFUSION. NO THROMBUS. VALVES ARE NORMAL. COLOR FLOW: MODERATE TO SEVERE TRICUSPID REGURGITATION ALSO SUBCOSTAL APPROACH - COPD M-MODE: MV: NORMAL AV: NORMAL TV: NORMAL PV: NORMAL CHAMBER SIZE: ENLARGED RIGHT VENTRICLE AND LEFT ATRIUM CAVITIES. WALL MOTION: NORMAL PERICARDIUM: NORMAL INTERPRETATION: 1. BORDERLINE LEFT VENTRICLE HYPERTROPHY WITH ENLARGED LEFT ATRIAL CAVITY. 2. ENLARGED RIGHT VENTRICLE CAVITY. 3. NORMAL VALVES BY 2 'D' AND 'M' MODE ECHOCARDIOGRAM. 4. COLOR FLOW = MODERATE TO SEVERE TRICUSPID REGURGITATION. EXAM: TWO VIEW CHEST. HISTORY: Hypoxia. COMPARISON: None. TECHNIQUE: Frontal and lateral views of the chest. FINDINGS: Postoperative changes of prior CABG. Lungs: The lung volumes are normal. The lungs are clear without consolidation or effusion. There are no suspicious nodules. There is no pneumothorax. Cardiovascular: The heart size and pulmonary vasculature is normal.. The aorta is tortuous and calcified. Rhonda/Mediastinum: Normal. Osseous structures. Normal for age. IMPRESSION: No acute pulmonary disease. EXAM: MRI OF THE BRAIN WITHOUT CONTRAST HISTORY: weakness to the left side, cerebrovascular accident syndrome TECHNIQUE: Multiplanar imaging of the brain was performed using T1, T2, inversion recovery, diffusion, T2 gradient sequences. Comparison 06/25/2023. FINDINGS: There is no restricted diffusion. The lateral ventricles and cortical sulci are prominent secondary to atrophy. The basal cisterns are patent. Normal flow voids are identified within the basal cisterns. The seventh and eighth cranial nerve complexes are normal. Normal flow signal is identified within the dural venous sinuses. T2 high signal foci are seen within the supratentorial white matter. No acute hemorrhages are seen. There is no mass effect. There are no extraaxial collections. The craniocervical junction and midline structures are normal. The soft tissues of the skull base and nasopharynx appear normal. The paranasal sinuses and mastoid air cells are clear. IMPRESSION: There is no acute cerebral infarction. Mild chronic small vessel ischemic changes seen within the supratentorial white matter. No acute intracranial abnormalities are seen. Review Review Statement: I have independently reviewed and interpreted the labs/EKGs/imaging that were ordered by the ER provider. I have reviewed all outside records that are available currently in our EMR including imaging/notes/labs from previous visits. Plan Reccomendations/Plan: 1. Stroke like symptoms - NIH initially 10, symptoms now completely resolved. CT head w/o and CTA h/n negative for acute findings. Check echo, lipid, a1c, MRI brain w/o. Likely will send home with holter monitor as well. Cont asa and plavix. Hold antihypertensives. 2. Hyperlipidemia - Cont home meds 3. Hypertension - Hold antihypertensives 4. CAD s/p stent/CABG - Cont asa and plavix 5. COPD - Pt has been mildly hypoxic. Refusing O2. 6. Hypothyroidism - Cont home meds. TSH in 04/18 was normal. MRI brain was negative for acute findings. Patient has remained at baseline, no more symptoms since yesterday in the ER. Discussed possibility of TIA. Pt is already on asa and plavix, will continue. Echo unremarkable. Will send on nuclear monitoring technician x 1 week. Discussed with patient she would qualify for O2 due to her COPD but she declines. States she won't wear it. Encouraged her to consider wearing it just at night even, she still declines. Will discharge patient home in stable condition. Discharge Diagnoses: 1. TIA, resolved 2. Hyperlipidemia 3. Hypertension 4. CAD s/p stent/CABG 5. COPD 6. Hypothyroidism Additional Planning: Case discussed with ED Physician, Dr. Su. Advanced Care Plannin minutes spent discussing advance care planning. Smoking Cessation: 3 minutes spent discussing smoking cessation. Admit to: Obs Discussed Plan of Care with Dr. Ninfa Contreras. Review With Patient Reviewed with Patient and Family: Patient and family have been counseled on condition and care plan and have no immediate questions. I have personally discussed and reviewed the patient's visit/current labs/imaging/decision making with Dr. Ninfa Contreras, my supervising attending. Total number of minutes spent with patient [85] min. More than 50% of the time spent with this patient was devoted to counseling and coordination of care. Time of Admission:06/25/23 19:41 Time of Discharge: 06/26/23 Discharge Plan Discharge Discharge Orders: Discharge Patient (ONCE); Ordered 06/26/23 Ordered By: BUCK CONTRERAS Activity Restrictions/Additional Instructions: DISCHARGE TO HOME DX: TIA F/U WITH PCP NEXT WEEK HOLTER MONITOR X1 WEEK DIET: CARDIAC ACTIVITY: TOLERATED, FALL PRECAUTIONS RETURN WITH WORSENING SYMPTOMS Instructions: How to Stop Smoking (DC), Cigarette Smoking and Your Health (GEN) Patient Disposition: HOME SELF-CARE Prescriptions: Continued ranolazine 500 mg tablet extended release 12 hr 500 mg PO BID Qty: 180 1RF atenolol 25 mg tablet 25 mg PO BID Qty: 180 1RF Rx Instructions: patient needs appt. for refills clopidogrel 75 mg tablet 75 mg PO DAILY Qty: 90 1RF alprazolam [Xanax] 0.25 mg tablet 0.25 mg PO BID Qty: 60 2RF levothyroxine [Euthyrox] 50 mcg tablet 50 mcg PO DAILY Qty: 90 1RF isosorbide mononitrate 30 mg tablet extended release 24 hr 30 mg PO DAILY Qty: 90 1RF lisinopril 40 mg tablet See Rx Instructions .ROUTE .COMPLEX Qty: 90 0RF Dose Instruction: Take 1 tablet by mouth once daily Rx Instructions: Take 1 tablet by mouth once daily ferrous sulfate 325 mg (65 mg iron) tablet 325 mg PO BID Qty: 60 0RF pravastatin 80 mg tablet 80 mg PO DAILY Qty: 90 0RF amlodipine 5 mg tablet See Rx Instructions .ROUTE .COMPLEX Qty: 90 1RF Dose Instruction: Take 1 tablet by mouth once daily Rx Instructions: Take 1 tablet by mouth once daily aspirin [Adult Low Dose Aspirin] 81 mg tablet,delayed release (DR/EC) 81 mg PO QDAY cyanocobalamin (vitamin B-12) [Vitamin B-12] 100 mcg tablet 100 mcg PO QDAY cholecalciferol (vitamin D3) 25 mcg (1,000 unit) capsule 25 mcg PO QDAY omega 2-hdo-sfk-fish oil [Fish Oil] 300-1,000 mg capsule 1 cap PO QDAY Did you review [place] STEVEDORING SUPERVISOR for ALL controlled substances?: Not Applicable Discussed opioids are addictive and Narcan is available by prescription or from pharmacy.: No Condition: Good
--- NOTE | 2023-06-26 15:13 | DI ---
EXAM: TWO VIEW CHEST. HISTORY: Hypoxia. COMPARISON: None. TECHNIQUE: Frontal and lateral views of the chest. FINDINGS: Postoperative changes of prior CABG. Lungs: The lung volumes are normal. The lungs are clear without consolidation or effusion. There are no suspicious nodules. There is no pneumothorax. Cardiovascular: The heart size and pulmonary vasculature is normal.. The aorta is tortuous and calcified. Rhonda/Mediastinum: Normal. Osseous structures. Normal for age. IMPRESSION: No acute pulmonary disease.
--- NOTE | 2023-06-26 15:13 | MRI ---
EXAM: MRI OF THE BRAIN WITHOUT CONTRAST HISTORY: weakness to the left side, cerebrovascular accident syndrome TECHNIQUE: Multiplanar imaging of the brain was performed using T1, T2, inversion recovery, diffusio n, T2 gradient sequences. Comparison 06/25/2023. FINDINGS: There is no restricted diffusion. The lateral ventricles and cortical sulci are prominent secondary to atrophy. The basal cisterns are patent. Normal flow voids are identified within the b estella cisterns. The seventh and eighth cranial nerve complexes are normal. Normal flow signal is hilda ntified within the dural venous sinuses. T2 high signal foci are seen within the supratentorial whit e matter. No acute hemorrhages are seen. There is no mass effect. There are no extraaxial collecti ons. The craniocervical junction and midline structures are normal. The soft tissues of the skull base an d nasopharynx appear normal. The paranasal sinuses and mastoid air cells are clear. IMPRESSION: There is no acute cerebral infarction. Mild chronic small vessel ischemic changes seen within the supratentorial white matter. No acute intracranial abnormalities are seen.
[2023-06-26 16:02] VITALS: PULSE 84; RESP 20
== END 2023-06-26 17:18 | disposition home or self-care (01) ==
LOC: ED 14:39 → MEDSURG B 14:39
PROVIDERS: ADMIT Hospitalist; ATTEND Physician Assistant
DX: I25.810 Atherosclerosis of coronary artery bypass graft(s) without angina pectoris; F17.210 Nicotine dependence, cigarettes, uncomplicated; Z95.5 Presence of coronary angioplasty implant and graft; G45.9 Transient cerebral ischemic attack, unspecified; J44.9 Chronic obstructive pulmonary disease, unspecified; Z79.899 Other long term (current) drug therapy; Z95.1 Presence of aortocoronary bypass graft; I10 Essential (primary) hypertension; E03.9 Hypothyroidism, unspecified; E78.5 Hyperlipidemia, unspecified; Z51.81 Encounter for therapeutic drug level monitoring; Z20.822 Contact with and (suspected) exposure to COVID-19